=== PATIENT | male | born 1975 | race Caucasian/White ===

== ENCOUNTER 2018-11-14 06:27 | Emergency (ER) | payer OTHER | END 2018-11-14 08:13 | disposition home or self-care (01) | LOC: FTE 06:27 | DX: S69.91XA Unspecified injury of right wrist, hand and finger(s), initial encounter (principal); V89.2XXA Person injured in unspecified motor-vehicle accident, traffic, initial encounter; Z87.891 Personal history of nicotine dependence | CPT/HCPCS: 73130; 73130-RT; 99283-25 ==